=== PATIENT | male | born 1960 | race Caucasian/White ===

== ENCOUNTER 2017-03-08 07:50 | Day surgery (SDC) | payer OTHER ==
[~2017-03-08] VITALS: Ht 182.9 cm; Wt 98.4 kg
[~2017-03-08 07:50] MED LIST: HYDR-4003 PO; ONDA8TAB10 PO; Sodium Chloride LOK Flush 10 mL Syringe IV PRN; fentaNYL-PF 50 mCg/mL 2 mL Inj IVPUSH PRN
[2017-03-08 08:16] VITALS: BP 117/72; PULSE 60; RESP 16; O2SAT 98
[2017-03-08] MEDS: 0.9% Sodium Chloride 1,000 ML IV SCH ×2 (08:22→08:58)
[2017-03-08 09:26] VITALS: BP 99/68; PULSE 55; RESP 16; O2SAT 91
[2017-03-08 09:30] VITALS: BP 100/67; PULSE 57; RESP 16; O2SAT 90
[2017-03-08 09:40] VITALS: BP 128/80; PULSE 52; RESP 16; O2SAT 93
--- NOTE | 2017-03-08 10:34 | ENDO ---
[address] [address] ENDOSCOPY PROCEDURE PATIENT: MYLES DUNLAP : 1960 MR#: [id number] ADMIT: 03/08/2017 JOB ID: [id number] DATE: 03/08/2017 PREOPERATIVE DIAGNOSIS(ES): 1. Personal history of colon polyps. 2. Possible family history of colon cancer. OPERATION: Colonoscopy to cecum. SURGEON: Vishnu Crystal M.D. INDICATIONS: A 56-year-old man who has a personal history of colon polyps with [place] colon[place] four [place] ago[place]. He also may have a family history of colon cancer in his brother, but he says that that is not a confirmed diagnosis. But after discussing options with the patient, it was elected to proceed with a colonoscopy and informed consent is obtained. FINDINGS: He had an adequate prep. The scope was advanced to the cecum. It was withdrawn over 10 minutes and 33 seconds using suction and irrigation as necessary. Retroflexed views of the rectum were obtained. There were no abnormalities. I saw no polyps, vascular or inflammatory lesions and no diverticulosis or enlarged hemorrhoids. PROCEDURE: The procedure and sedation plan was discussed with the patient and nursing staff, and a procedural time-out was held. He received 4 mg of Versed and 100 mcg of fentanyl. Digital rectal examination was performed and the Olympus PCF H 180 AL video colonoscope was passed transanally, advanced to the cecum, withdrawn over 10 minutes and 33 seconds obtaining retroflexed views of the rectum. There were no abnormalities. No biopsies were taken. No apparent complications. IMPRESSION: Normal colonoscopy to cecum. RECOMMENDATIONS: Repeat colonoscopy in five years based on personal history of colon polyps and possible family history of colon cancer.
== END 2017-03-08 23:59 | disposition home or self-care (01) ==
LOC: END 07:50
PROVIDERS: ATTEND Surgery
DX: Z12.11 Encounter for screening for malignant neoplasm of colon (principal); Z86.010 Personal history of colon polyps; F17.210 Nicotine dependence, cigarettes, uncomplicated
CPT/HCPCS: G0105; G0500; J7030